=== PATIENT | female | born 1975 | race Two or more races ===

== ENCOUNTER 2021-08-02 13:50 | Outpatient (CLI) | payer OTHER ==
[~2021-08-02 13:50] MED LIST: YAZ 28 TABLET1 TAB PO; ZYRTEC1 MG/ML PO
== END 2021-08-02 14:45 | disposition home or self-care (01) ==
LOC: ASH CLINIC 13:50
PROVIDERS: ATTEND General Practice
DX: U07.1 COVID-19 (principal); Z23 Encounter for immunization